=== PATIENT | male | born 1945 | race Caucasian/White ===

== ENCOUNTER 2017-05-24 03:06 | Inpatient (IN) | payer MEDICARE, BC ==
[2017-05-24] MEDS: ALBUTEROL 0.5% (NEB) 2.5 MG/0.5 ML AMP INH (04:05)
[2017-05-24] MEDS: IPRATROPIUM (NEB) 0.5 MG/2.5 ML AMP INH (04:05)
[2017-05-24 04:21] LABS: ADD MAN DIFF? NO
[2017-05-24 04:27] LABS: WHITE BLOOD COUNT 15.7 10^3/ul (4.8-10.8)
[2017-05-24 04:27] LABS: ABNORMAL IP MESSAGE 1; BASOPHILS % 0.2 % (0.0-2.0); EOSINOPHILS # 0.1 10^3/ul (0.0-0.5); EOSINOPHILS % 0.4 % (0.0-7.0); HEMATOCRIT 44.3 % (42.0-52.0); HEMOGLOBIN 14.9 g/dl (14.0-18.0); LYMPHOCYTES # 0.3 10^3/ul (0.8-2.9); LYMPHOCYTES % 1.6 % (15.0-51.0); MEAN CORPUSCULAR HEMOGLOBIN 32.7 pg (29.0-33.0); MEAN CORPUSCULAR HGB CONC 33.6 g/dl (32.0-37.0); MEAN CORPUSCULAR VOLUME 97.1 fl (82.0-101.0); MEAN PLATELET VOLUME 10.9 fl (7.4-10.4); MONOCYTE # 0.6 10^3/ul (0.3-0.9); MONOCYTES % 3.8 % (0.0-11.0); NEUTROPHIL # 14.7 10^3/ul (1.6-7.5); NEUTROPHILS % 93.6 % (39.0-77.0); PLATELET COUNT 153 10^3/UL (140-415); POSITIVE DIFF @See below; RED BLOOD COUNT 4.56 10^6/ul (4.70-6.10); RED CELL DISTRIBUTION WIDTH 13.3 % (11.5-14.5)
[2017-05-24 04:42] LABS: INR 0.94; PROTIME 12.7 Sec (11.9-14.9)
[2017-05-24 04:43] LABS: PARTIAL THROMBOPLASTIN TIME 20.7 Sec (25.0-35.0)
[2017-05-24 04:44] LABS: LACTIC ACID 1.8 mmol/L (0.5-2.0)
[2017-05-24 04:44] LABS: ALANINE AMINOTRANSFERASE 22 IU/L (13-69); ALBUMIN 3.8 g/dl (3.3-4.9); ALBUMIN/GLOBULIN RATIO 1.18; ALKALINE PHOSPHATASE 172 IU/L (42-121); ANION GAP 13 (8-16); ASPARTATE AMINO TRANSFERASE 50 IU/L (15-46); BILIRUBIN,INDIRECT 1.5 mg/dl (0-1.1); BILIRUBIN,TOTAL 1.5 mg/dl (0.2-1.3); BLOOD UREA NITROGEN 18 mg/dl (7-20); CALCIUM 8.5 mg/dl (8.4-10.2); CARBON DIOXIDE 34 mmol/L (21-31); CHLORIDE 99 mmol/L (97-110); CREATININE 0.63 mg/dl (0.61-1.24); GLUCOSE 99 mg/dl (70-220); POTASSIUM 3.7 mmol/L (3.5-5.1); SODIUM 142 mmol/L (135-144)
[2017-05-24 04:55] LABS: TROPONIN-I < 0.012 ng/ml (0.00-0.12)
[2017-05-24] MEDS ORDERED: ONDANSETRON 4 MG INJ IV (06:00)
[2017-05-24] MEDS ORDERED: ALBUTEROL/IPRATROPIUM (NEB) 3 ML AMP HHN ×2 (06:00→10:30)
[2017-05-24] MEDS ORDERED: NACL 0.9% 3 ML SYG IV (06:00)
[2017-05-24] MEDS ORDERED: morphine 2 MG INJ IV (06:00)
[2017-05-24 06:32] LABS: LACTIC ACID 1.6 mmol/L (0.5-2.0)
[2017-05-24 06:40] LABS: B-TYPE NATRIURETIC PEPTIDE 291 PG/ML (0-125)
[2017-05-24 07:03] LABS: AADO2 Arterial 23.9 mmHg (7.0-24.0); Allen Test ACCEPTAB; Arterial Base Excess 5.4 mmol/L (-3.0-3); Arterial Blood Gas Oxygen Sat 98.9 mmHG (95.0-98.0); Arterial Fraction of Oxyhgb 97.5 % (93.0-99.0); Arterial HCO3 34.8 mmol/L (22.0-26.0); Arterial MetHb 0.4 % (0.0-1.5); Arterial Total Hemglobin 15.4 g/dl (12.0-18.0); Arterial pCO2 73.2 mmhg (35-45); MODE NASAL CANNULA; Site Right Radial
[2017-05-24] MEDS: FUROSEMIDE 20 MG INJ IV (07:37)
[2017-05-24] MEDS ORDERED: ASPIRIN (EC) 81 MG TAB PO (09:00)
[2017-05-24] MEDS: LEVOFLOXACIN 500MG/D5W (PMX) 100 ML IVPB (09:07)
[2017-05-24] MEDS: ENOXAPARIN 40 MG/0.4 ML SYG SC (09:08)
[2017-05-24] MEDS: METHYLPREDNISOLONE 125 MG INJ IV ×3 (09:08→21:32)
[2017-05-24] MEDS: ENTACAPONE 200 MG TAB PO ×4 (10:46→21:32)
[2017-05-24 10:49] LABS: LACTIC ACID 0.9 mmol/L (0.5-2.0)
[2017-05-24] MEDS ORDERED: CARBIDOPA/LEVODOPA (25/100) TAB PO (13:00)
[2017-05-24] MEDS: CARBIDOPA/LEVODOPA (25/100) TAB PO ×3 (13:22→21:32)
[2017-05-24 13:42] LABS: AADO2 Arterial 365.6 mmHg (7.0-24.0); Allen Test ACCEPTAB; Arterial Base Excess 5.5 mmol/L (-3.0-3); Arterial Blood Gas Oxygen Sat 99.4 mmHG (95.0-98.0); Arterial COHb 0.6 % (0.0-3.0); Arterial Fraction of Oxyhgb 98.5 % (93.0-99.0); Arterial HCO3 36.1 mmol/L (22.0-26.0); Arterial MetHb 0.3 % (0.0-1.5); Arterial Total Hemglobin 15.3 g/dl (12.0-18.0); Arterial pCO2 83.9 mmhg (35-45); Blood Gas IEPAP 20/8; MODE MASK - BIPAP; Site Right Radial
[2017-05-24] MEDS: SOD CHLORIDE 0.9% 1,000 ML IV (14:28)
[2017-05-24] MEDS: POLYETHYLENE GLYCOL 17 GM PACKET GTB ×2 (14:30→21:33)
[2017-05-24 14:55] LABS: CREATINE KINASE 43 IU/L (23-200)
[2017-05-24 15:06] LABS: CK INDEX 2.9
[2017-05-24 15:10] LABS: TROPONIN-I 0.019 ng/ml (0.00-0.12)
[2017-05-24 15:20] LABS: CK-MB 1.26 ng/ml (0.0-2.4)
[2017-05-24 17:26] LABS: ADD UMIC YES; UR ASCORBIC ACID 40 mg/dL (NEGATIVE); UR BACTERIA MODERATE /HPF (NONE SEEN); UR BILIRUBIN (Dip) 1+ mg/dL (NEGATIVE); UR BLOOD (Dip) NEGATIVE (NEGATIVE); UR CLARITY CLOUDY (CLEAR); UR COLOR AMBER (YELLOW); UR GLUCOSE (Dip) NEGATIVE (NEGATIVE); UR KETONES (Dip) TRACE mg/dL (NEGATIVE); UR LEUKOCYTE ESTERASE (Dip) TRACE Leu/ul (NEGATIVE); UR MUCUS MANY /HPF (NONE SEEN); UR NITRITE (Dip) NEGATIVE (NEGATIVE); UR RBC 4 /HPF (0-5); UR SPECIFIC GRAVITY (Dip) 1.023 (1.003-1.030); UR TOTAL PROTEIN (Dip) 2+ mg/dl (NEGATIVE); UR UROBILINOGEN (Dip) NEGATIVE (NEGATIVE); UR WBC 3 /HPF (0-5)
[2017-05-24 18:30] LABS: AADO2 Arterial 156.9 mmHg (7.0-24.0); Allen Test ACCEPTAB; Arterial Blood Gas Oxygen Sat 98.7 mmHG (95.0-98.0); Arterial COHb 0.4 % (0.0-3.0); Arterial Fraction of Oxyhgb 98.1 % (93.0-99.0); Arterial HCO3 34.2 mmol/L (22.0-26.0); Arterial MetHb 0.2 % (0.0-1.5); Arterial Total Hemglobin 15.6 g/dl (12.0-18.0); Arterial pCO2 58.8 mmhg (35-45); Blood Gas IEPAP 20/8; MODE MASK - BIPAP; Site Left Radial
[2017-05-24] MEDS: ASPIRIN (EC) 81 MG TAB PO (21:32)
[2017-05-24] MEDS: ATORVASTATIN 10 MG TAB PO (21:33)
[2017-05-25 05:44] LABS: ADD MAN DIFF? NO
[2017-05-25] MEDS: METHYLPREDNISOLONE 125 MG INJ IV ×3 (05:52→22:00)
[2017-05-25 06:02] LABS: ABNORMAL IP MESSAGE 1; BASOPHILS % 0.1 % (0.0-2.0); HEMATOCRIT 36.9 % (42.0-52.0); HEMOGLOBIN 12.4 g/dl (14.0-18.0); LYMPHOCYTES # 0.2 10^3/ul (0.8-2.9); LYMPHOCYTES % 1.6 % (15.0-51.0); MEAN CORPUSCULAR HEMOGLOBIN 32.5 pg (29.0-33.0); MEAN CORPUSCULAR HGB CONC 33.6 g/dl (32.0-37.0); MEAN CORPUSCULAR VOLUME 96.6 fl (82.0-101.0); MONOCYTE # 0.2 10^3/ul (0.3-0.9); MONOCYTES % 1.1 % (0.0-11.0); NEUTROPHIL # 14.7 10^3/ul (1.6-7.5); NEUTROPHILS % 96.7 % (39.0-77.0); PLATELET COUNT 160 10^3/UL (140-415); POSITIVE DIFF @See below; RED BLOOD COUNT 3.82 10^6/ul (4.70-6.10); RED CELL DISTRIBUTION WIDTH 12.8 % (11.5-14.5)
[2017-05-25 06:02] LABS: WHITE BLOOD COUNT 15.2 10^3/ul (4.8-10.8)
[2017-05-25 06:46] LABS: ALANINE AMINOTRANSFERASE 31 IU/L (13-69); ALBUMIN 2.9 g/dl (3.3-4.9); ALKALINE PHOSPHATASE 113 IU/L (42-121); ANION GAP 10 (8-16); ASPARTATE AMINO TRANSFERASE 29 IU/L (15-46); BILIRUBIN,INDIRECT 0.9 mg/dl (0-1.1); BILIRUBIN,TOTAL 0.9 mg/dl (0.2-1.3); BLOOD UREA NITROGEN 27 mg/dl (7-20); CALCIUM 8.5 mg/dl (8.4-10.2); CARBON DIOXIDE 33 mmol/L (21-31); CHLORIDE 101 mmol/L (97-110); CREATININE 0.76 mg/dl (0.61-1.24); GLUCOSE 171 mg/dl (70-220); MAGNESIUM 2.4 mg/dl (1.7-2.5); PHOSPHORUS 1.5 mg/dl (2.5-4.9); POTASSIUM 4.7 mmol/L (3.5-5.1); SODIUM 139 mmol/L (135-144); TOTAL PROTEIN 5.8 g/dl (6.1-8.1)
[2017-05-25 07:56] LABS: AADO2 Arterial 237.3 mmHg (7.0-24.0); Allen Test ACCEPTAB; Arterial Base Excess 7.9 mmol/L (-3.0-3); Arterial Blood Gas Oxygen Sat 93.2 mmHG (95.0-98.0); Arterial COHb 0.1 % (0.0-3.0); Arterial Fraction of Oxyhgb 92.8 % (93.0-99.0); Arterial HCO3 34.1 mmol/L (22.0-26.0); Arterial MetHb 0.3 % (0.0-1.5); Arterial Total Hemglobin 13.8 g/dl (12.0-18.0); Arterial pCO2 53.9 mmhg (35-45); Blood Gas IEPAP 20/8; MODE MASK - BIPAP; Site Right Radial
[2017-05-25] MEDS: POLYETHYLENE GLYCOL 17 GM PACKET GTB (08:00)
[2017-05-25] MEDS: ALBUTEROL/IPRATROPIUM (NEB) 3 ML AMP HHN ×3 (08:20→20:00)
[2017-05-25] MEDS: LEVOFLOXACIN 500MG/D5W (PMX) 100 ML IVPB (08:41)
[2017-05-25] MEDS: ENTACAPONE 200 MG TAB PO ×4 (08:42→22:00)
[2017-05-25] MEDS: CARBIDOPA/LEVODOPA (25/100) TAB PO ×5 (08:43→21:59)
[2017-05-25] MEDS: ENOXAPARIN 40 MG/0.4 ML SYG SC (09:04)
[2017-05-25 09:19] LABS: CHOL/HDL RATIO 2.1 RATIO; HDL CHOLESTEROL 41 mg/dl (31-75); LDL CHOLESTEROL,CALCULATED 42 mg/dl; TRIGLYCERIDES 31 mg/dl (0-149)
[2017-05-25 09:19] LABS: CHOLESTEROL 89 mg/dl (100-200)
[2017-05-25] MEDS: SPECIAL NON-STANDARD MEDICATION TOP ×2 (11:24→16:21)
[2017-05-25] MEDS: NEUTRA-PHOS 250 MG PACKET PEG (13:00)
[2017-05-25] MEDS: ATORVASTATIN 10 MG TAB PO (21:59)
[2017-05-25] MEDS: ASPIRIN (EC) 81 MG TAB PO (22:00)
[2017-05-26 05:23] LABS: ADD MAN DIFF? NO
[2017-05-26 05:27] LABS: WHITE BLOOD COUNT 10.6 10^3/ul (4.8-10.8)
[2017-05-26 05:27] LABS: ABNORMAL IP MESSAGE 1; BASOPHILS % 0.1 % (0.0-2.0); HEMATOCRIT 37.6 % (42.0-52.0); HEMOGLOBIN 12.7 g/dl (14.0-18.0); LYMPHOCYTES # 0.2 10^3/ul (0.8-2.9); MEAN CORPUSCULAR HEMOGLOBIN 32.9 pg (29.0-33.0); MEAN CORPUSCULAR HGB CONC 33.8 g/dl (32.0-37.0); MEAN CORPUSCULAR VOLUME 97.4 fl (82.0-101.0); MEAN PLATELET VOLUME 10.8 fl (7.4-10.4); MONOCYTE # 0.2 10^3/ul (0.3-0.9); MONOCYTES % 1.8 % (0.0-11.0); NEUTROPHIL # 10.2 10^3/ul (1.6-7.5); NEUTROPHILS % 95.8 % (39.0-77.0); PLATELET COUNT 157 10^3/UL (140-415); POSITIVE DIFF @See below; RED BLOOD COUNT 3.86 10^6/ul (4.70-6.10); RED CELL DISTRIBUTION WIDTH 12.6 % (11.5-14.5)
[2017-05-26] MEDS: METHYLPREDNISOLONE 125 MG INJ IV (05:56)
[2017-05-26 06:21] LABS: IRON 18 ug/dl (35-150)
[2017-05-26 06:31] LABS: % IRON SATURATION 6 % SAT (22-52); TOTAL IRON BINDING CAPACITY 312 ug/dl (241-421)
[2017-05-26 06:35] LABS: AADO2 Arterial 193.8 mmHg (7.0-24.0); Allen Test ACCEPTAB; Arterial Base Excess 10.3 mmol/L (-3.0-3); Arterial Blood Gas Oxygen Sat 96.5 mmHG (95.0-98.0); Arterial COHb 0.3 % (0.0-3.0); Arterial HCO3 38.7 mmol/L (22.0-26.0); Arterial MetHb 0.2 % (0.0-1.5); Arterial Total Hemglobin 13.8 g/dl (12.0-18.0); Arterial pCO2 70.6 mmhg (35-45); MODE MASK - VENTI; Site Right Radial
[2017-05-26 06:40] LABS: ANION GAP 10 (8-16); BLOOD UREA NITROGEN 32 mg/dl (7-20); CALCIUM 8.6 mg/dl (8.4-10.2); CARBON DIOXIDE 35 mmol/L (21-31); CHLORIDE 100 mmol/L (97-110); CREATININE 0.66 mg/dl (0.61-1.24); GLUCOSE 203 mg/dl (70-220); MAGNESIUM 2.5 mg/dl (1.7-2.5); PHOSPHORUS 2.4 mg/dl (2.5-4.9); POTASSIUM 4.4 mmol/L (3.5-5.1); SODIUM 141 mmol/L (135-144)
[2017-05-26] MEDS: ALBUTEROL/IPRATROPIUM (NEB) 3 ML AMP HHN ×3 (07:54→18:59)
[2017-05-26] MEDS: LEVOFLOXACIN 500MG/D5W (PMX) 100 ML IVPB (08:39)
[2017-05-26] MEDS: CARBIDOPA/LEVODOPA (25/100) TAB PO ×6 (08:39→21:46)
[2017-05-26] MEDS: ENTACAPONE 200 MG TAB PO ×4 (08:40→21:46)
[2017-05-26] MEDS: ASPIRIN (EC) 81 MG TAB PO (08:41)
[2017-05-26] MEDS: ENOXAPARIN 40 MG/0.4 ML SYG SC (08:46)
[2017-05-26] MEDS: POLYETHYLENE GLYCOL 17 GM PACKET GTB (08:47)
[2017-05-26] MEDS: SPECIAL NON-STANDARD MEDICATION TOP ×2 (12:41→12:52)
[2017-05-26] MEDS: ACETAMINOPHEN 325 MG TAB PO (20:05)
[2017-05-26] MEDS: METHYLPREDNISOLONE 40 MG INJ IV (21:46)
[2017-05-26] MEDS: ATORVASTATIN 10 MG TAB PO (21:46)
[2017-05-27] MEDS: ACETAMINOPHEN 325 MG TAB PO ×3 (02:15→20:59)
[2017-05-27 04:53] LABS: ADD MAN DIFF? NO
[2017-05-27 05:03] LABS: WHITE BLOOD COUNT 7.9 10^3/ul (4.8-10.8)
[2017-05-27 05:03] LABS: ABNORMAL IP MESSAGE 1; HEMATOCRIT 37.5 % (42.0-52.0); HEMOGLOBIN 12.5 g/dl (14.0-18.0); LYMPHOCYTES # 0.1 10^3/ul (0.8-2.9); LYMPHOCYTES % 1.5 % (15.0-51.0); MEAN CORPUSCULAR HEMOGLOBIN 32.8 pg (29.0-33.0); MEAN CORPUSCULAR HGB CONC 33.3 g/dl (32.0-37.0); MEAN CORPUSCULAR VOLUME 98.4 fl (82.0-101.0); MEAN PLATELET VOLUME 10.8 fl (7.4-10.4); MONOCYTE # 0.3 10^3/ul (0.3-0.9); MONOCYTES % 3.3 % (0.0-11.0); NEUTROPHIL # 7.4 10^3/ul (1.6-7.5); NEUTROPHILS % 94.8 % (39.0-77.0); PLATELET COUNT 176 10^3/UL (140-415); POSITIVE DIFF @See below; RED BLOOD COUNT 3.81 10^6/ul (4.70-6.10); RED CELL DISTRIBUTION WIDTH 12.4 % (11.5-14.5)
[2017-05-27 05:24] LABS: ANION GAP 8 (8-16); BLOOD UREA NITROGEN 30 mg/dl (7-20); CALCIUM 8.7 mg/dl (8.4-10.2); CARBON DIOXIDE 38 mmol/L (21-31); CHLORIDE 101 mmol/L (97-110); CREATININE 0.63 mg/dl (0.61-1.24); GLUCOSE 186 mg/dl (70-220); MAGNESIUM 2.4 mg/dl (1.7-2.5); PHOSPHORUS 2.8 mg/dl (2.5-4.9); POTASSIUM 4.5 mmol/L (3.5-5.1); SODIUM 142 mmol/L (135-144)
[2017-05-27 06:46] LABS: AADO2 Arterial 100.6 mmHg (7.0-24.0); Allen Test ACCEPTAB; Arterial Base Excess 7.5 mmol/L (-3.0-3); Arterial Blood Gas Oxygen Sat 96.4 mmHG (95.0-98.0); Arterial COHb 0.1 % (0.0-3.0); Arterial Fraction of Oxyhgb 96.1 % (93.0-99.0); Arterial HCO3 35.2 mmol/L (22.0-26.0); Arterial MetHb 0.2 % (0.0-1.5); Arterial Total Hemglobin 14.6 g/dl (12.0-18.0); Arterial pCO2 62.7 mmhg (35-45); MODE NASAL CANNULA; Site Right Radial
[2017-05-27] MEDS: ALBUTEROL/IPRATROPIUM (NEB) 3 ML AMP HHN ×3 (07:52→19:39)
[2017-05-27] MEDS: CARBIDOPA/LEVODOPA (25/100) TAB PO ×6 (09:27→20:57)
[2017-05-27] MEDS: POLYETHYLENE GLYCOL 17 GM PACKET GTB (09:33)
[2017-05-27] MEDS: FERROUS SULFATE 60 MG/ML 5ML CUP GTB (09:33)
[2017-05-27] MEDS: ASCORBIC ACID 500 MG TAB NGT (09:34)
[2017-05-27] MEDS: ENTACAPONE 200 MG TAB PO ×4 (09:34→20:59)
[2017-05-27] MEDS: ASPIRIN (EC) 81 MG TAB PO (09:34)
[2017-05-27] MEDS: ENOXAPARIN 40 MG/0.4 ML SYG SC (09:39)
[2017-05-27] MEDS: METHYLPREDNISOLONE 40 MG INJ IV ×2 (09:44→20:58)
[2017-05-27] MEDS: LISINOPRIL 5 MG TAB PO (10:06)
[2017-05-27] MEDS: PIPER-TAZO 3.375 GM IV (PMX) 50 ML IVPB ×3 (12:28→23:50)
[2017-05-27] MEDS: SPECIAL NON-STANDARD MEDICATION TOP (13:28)
[2017-05-27] MEDS: ATORVASTATIN 10 MG TAB PO (20:59)
[2017-05-28] MEDS: hydrALAzine 20 MG INJ IV ×2 (04:49→21:29)
[2017-05-28 05:30] LABS: ADD MAN DIFF? NO
[2017-05-28] MEDS: PIPER-TAZO 3.375 GM IV (PMX) 50 ML IVPB ×3 (05:33→17:14)
[2017-05-28 05:46] LABS: WHITE BLOOD COUNT 5.9 10^3/ul (4.8-10.8)
[2017-05-28 05:46] LABS: ABNORMAL IP MESSAGE 1; BASOPHILS % 0.2 % (0.0-2.0); HEMATOCRIT 37.4 % (42.0-52.0); HEMOGLOBIN 12.9 g/dl (14.0-18.0); LYMPHOCYTES # 0.2 10^3/ul (0.8-2.9); LYMPHOCYTES % 3.4 % (15.0-51.0); MEAN CORPUSCULAR HEMOGLOBIN 32.5 pg (29.0-33.0); MEAN CORPUSCULAR HGB CONC 34.5 g/dl (32.0-37.0); MEAN CORPUSCULAR VOLUME 94.2 fl (82.0-101.0); MEAN PLATELET VOLUME 10.8 fl (7.4-10.4); MONOCYTE # 0.4 10^3/ul (0.3-0.9); MONOCYTES % 6.6 % (0.0-11.0); NEUTROPHIL # 5.3 10^3/ul (1.6-7.5); NEUTROPHILS % 89.3 % (39.0-77.0); PLATELET COUNT 187 10^3/UL (140-415); POSITIVE DIFF @See below; RED BLOOD COUNT 3.97 10^6/ul (4.70-6.10); RED CELL DISTRIBUTION WIDTH 12.3 % (11.5-14.5)
[2017-05-28 06:27] LABS: ANION GAP 9 (8-16); BLOOD UREA NITROGEN 27 mg/dl (7-20); CALCIUM 8.7 mg/dl (8.4-10.2); CARBON DIOXIDE 33 mmol/L (21-31); CHLORIDE 104 mmol/L (97-110); CREATININE 0.68 mg/dl (0.61-1.24); GLUCOSE 155 mg/dl (70-220); MAGNESIUM 2.3 mg/dl (1.7-2.5); PHOSPHORUS 2.2 mg/dl (2.5-4.9); POTASSIUM 4.2 mmol/L (3.5-5.1); SODIUM 142 mmol/L (135-144)
[2017-05-28] MEDS: FERROUS SULFATE 60 MG/ML 5ML CUP GTB (09:09)
[2017-05-28] MEDS: ASCORBIC ACID 500 MG TAB NGT (09:09)
[2017-05-28] MEDS: CARBIDOPA/LEVODOPA (25/100) TAB PO ×6 (09:10→20:59)
[2017-05-28] MEDS: LISINOPRIL 10 MG TAB PO (09:10)
[2017-05-28] MEDS: ENTACAPONE 200 MG TAB PO ×4 (09:11→20:59)
[2017-05-28] MEDS: ASPIRIN (EC) 81 MG TAB PO (09:11)
[2017-05-28] MEDS: METHYLPREDNISOLONE 40 MG INJ IV ×2 (09:11→20:58)
[2017-05-28] MEDS: ENOXAPARIN 40 MG/0.4 ML SYG SC (09:15)
[2017-05-28] MEDS: POLYETHYLENE GLYCOL 17 GM PACKET GTB (09:33)
[2017-05-28] MEDS: ALBUTEROL/IPRATROPIUM (NEB) 3 ML AMP HHN ×4 (10:06→20:44)
[2017-05-28 10:29] LABS: AADO2 Arterial 79.6 mmHg (7.0-24.0); Allen Test ACCEPTAB; Arterial Base Excess 8.1 mmol/L (-3.0-3); Arterial Blood Gas Oxygen Sat 98.8 mmHG (95.0-98.0); Arterial COHb 0.3 % (0.0-3.0); Arterial Fraction of Oxyhgb 98.3 % (93.0-99.0); Arterial HCO3 33.8 mmol/L (22.0-26.0); Arterial MetHb 0.2 % (0.0-1.5); Arterial Total Hemglobin 13.2 g/dl (12.0-18.0); Arterial pCO2 51.5 mmhg (35-45); Blood Gas IEPAP 20/8; MODE MASK - BIPAP; Site Left Radial
[2017-05-28] MEDS: ACETAMINOPHEN 325 MG TAB PO ×2 (11:08→20:59)
[2017-05-28] MEDS: SPECIAL NON-STANDARD MEDICATION TOP (14:00)
[2017-05-28] MEDS: ATORVASTATIN 10 MG TAB PO (20:59)
[2017-05-29] MEDS: PIPER-TAZO 3.375 GM IV (PMX) 50 ML IVPB ×4 (00:01→17:33)
[2017-05-29 05:29] LABS: ADD MAN DIFF? NO
[2017-05-29 05:37] LABS: ABNORMAL IP MESSAGE 1; BASOPHILS % 0.2 % (0.0-2.0); HEMATOCRIT 37.4 % (42.0-52.0); LYMPHOCYTES # 0.2 10^3/ul (0.8-2.9); LYMPHOCYTES % 3.4 % (15.0-51.0); MEAN CORPUSCULAR HEMOGLOBIN 32.7 pg (29.0-33.0); MEAN CORPUSCULAR HGB CONC 34.8 g/dl (32.0-37.0); MEAN CORPUSCULAR VOLUME 94.2 fl (82.0-101.0); MEAN PLATELET VOLUME 10.4 fl (7.4-10.4); MONOCYTE # 0.3 10^3/ul (0.3-0.9); MONOCYTES % 4.7 % (0.0-11.0); NEUTROPHIL # 5.8 10^3/ul (1.6-7.5); NEUTROPHILS % 90.5 % (39.0-77.0); PLATELET COUNT 171 10^3/UL (140-415); POSITIVE DIFF @See below; RED BLOOD COUNT 3.97 10^6/ul (4.70-6.10); RED CELL DISTRIBUTION WIDTH 12.3 % (11.5-14.5)
[2017-05-29 05:37] LABS: WHITE BLOOD COUNT 6.4 10^3/ul (4.8-10.8)
[2017-05-29 06:37] LABS: ANION GAP 9 (8-16); BLOOD UREA NITROGEN 29 mg/dl (7-20); CALCIUM 8.8 mg/dl (8.4-10.2); CARBON DIOXIDE 31 mmol/L (21-31); CHLORIDE 105 mmol/L (97-110); CREATININE 0.63 mg/dl (0.61-1.24); GLUCOSE 151 mg/dl (70-220); MAGNESIUM 2.2 mg/dl (1.7-2.5); PHOSPHORUS 2.6 mg/dl (2.5-4.9); POTASSIUM 3.9 mmol/L (3.5-5.1); SODIUM 141 mmol/L (135-144)
[2017-05-29] MEDS: ALBUTEROL/IPRATROPIUM (NEB) 3 ML AMP HHN ×3 (07:54→19:02)
[2017-05-29] MEDS: FERROUS SULFATE 60 MG/ML 5ML CUP GTB (08:37)
[2017-05-29] MEDS: ENTACAPONE 200 MG TAB PO ×4 (08:38→21:05)
[2017-05-29] MEDS: ASCORBIC ACID 500 MG TAB NGT (08:38)
[2017-05-29] MEDS: ASPIRIN (EC) 81 MG TAB PO (08:38)
[2017-05-29] MEDS: CARBIDOPA/LEVODOPA (25/100) TAB PO ×6 (08:38→21:05)
[2017-05-29] MEDS: POLYETHYLENE GLYCOL 17 GM PACKET GTB (08:39)
[2017-05-29] MEDS: METHYLPREDNISOLONE 40 MG INJ IV ×2 (08:39→21:05)
[2017-05-29] MEDS: LISINOPRIL 10 MG TAB PO (08:40)
[2017-05-29] MEDS: ENOXAPARIN 40 MG/0.4 ML SYG SC (08:44)
[2017-05-29] MEDS: ACETAMINOPHEN 325 MG TAB PO ×2 (09:46→21:05)
[2017-05-29] MEDS: SPECIAL NON-STANDARD MEDICATION TOP (13:20)
[2017-05-29] MEDS: hydrALAzine 20 MG INJ IV (21:05)
[2017-05-29] MEDS: ATORVASTATIN 10 MG TAB PO (21:05)
[2017-05-30] MEDS: PIPER-TAZO 3.375 GM IV (PMX) 50 ML IVPB ×4 (00:04→17:10)
[2017-05-30 05:04] LABS: ADD MAN DIFF? NO
[2017-05-30 05:15] LABS: ABNORMAL IP MESSAGE 1; BASOPHILS % 0.1 % (0.0-2.0); HEMATOCRIT 39.1 % (42.0-52.0); HEMOGLOBIN 13.2 g/dl (14.0-18.0); LYMPHOCYTES # 0.2 10^3/ul (0.8-2.9); LYMPHOCYTES % 2.5 % (15.0-51.0); MEAN CORPUSCULAR HGB CONC 33.8 g/dl (32.0-37.0); MEAN CORPUSCULAR VOLUME 94.9 fl (82.0-101.0); MEAN PLATELET VOLUME 10.4 fl (7.4-10.4); MONOCYTE # 0.4 10^3/ul (0.3-0.9); MONOCYTES % 5.3 % (0.0-11.0); NEUTROPHIL # 7.3 10^3/ul (1.6-7.5); NEUTROPHILS % 90.1 % (39.0-77.0); PLATELET COUNT 183 10^3/UL (140-415); POSITIVE DIFF @See below; RED BLOOD COUNT 4.12 10^6/ul (4.70-6.10); RED CELL DISTRIBUTION WIDTH 12.4 % (11.5-14.5)
[2017-05-30 05:15] LABS: WHITE BLOOD COUNT 8.1 10^3/ul (4.8-10.8)
[2017-05-30 05:55] LABS: ANION GAP 8 (8-16); BLOOD UREA NITROGEN 32 mg/dl (7-20); CARBON DIOXIDE 34 mmol/L (21-31); CHLORIDE 105 mmol/L (97-110); CREATININE 0.68 mg/dl (0.61-1.24); GLUCOSE 150 mg/dl (70-220); MAGNESIUM 2.2 mg/dl (1.7-2.5); PHOSPHORUS 3.3 mg/dl (2.5-4.9); POTASSIUM 4.2 mmol/L (3.5-5.1); SODIUM 143 mmol/L (135-144)
[2017-05-30] MEDS: ALBUTEROL/IPRATROPIUM (NEB) 3 ML AMP HHN ×3 (07:29→19:40)
[2017-05-30] MEDS: FERROUS SULFATE 60 MG/ML 5ML CUP GTB (09:04)
[2017-05-30] MEDS: POLYETHYLENE GLYCOL 17 GM PACKET GTB (09:04)
[2017-05-30] MEDS: METHYLPREDNISOLONE 40 MG INJ IV (09:04)
[2017-05-30] MEDS: ASCORBIC ACID 500 MG TAB NGT (09:04)
[2017-05-30] MEDS: ASPIRIN (EC) 81 MG TAB PO (09:05)
[2017-05-30] MEDS: ENTACAPONE 200 MG TAB PO ×4 (09:05→21:27)
[2017-05-30] MEDS: CARBIDOPA/LEVODOPA (25/100) TAB PO ×6 (09:05→21:27)
[2017-05-30] MEDS: LISINOPRIL 10 MG TAB PO (09:06)
[2017-05-30] MEDS: SPECIAL NON-STANDARD MEDICATION TOP (09:08)
[2017-05-30] MEDS: ENOXAPARIN 40 MG/0.4 ML SYG SC (09:11)
[2017-05-30] MEDS: ACETAMINOPHEN 325 MG TAB PO ×2 (09:21→17:56)
[2017-05-30 10:54] LABS: Allen Test ACCEPTAB; Arterial Base Excess 8.4 mmol/L (-3.0-3); Arterial Blood Gas Oxygen Sat 95.9 mmHG (95.0-98.0); Arterial COHb 0.3 % (0.0-3.0); Arterial Fraction of Oxyhgb 95.4 % (93.0-99.0); Arterial HCO3 36.8 mmol/L (22.0-26.0); Arterial MetHb 0.2 % (0.0-1.5); Arterial Total Hemglobin 14.3 g/dl (12.0-18.0); Arterial pCO2 68.3 mmhg (35-45); MODE MASK - VENTI; Site Right Radial
[2017-05-30] MEDS: ATORVASTATIN 10 MG TAB PO (21:27)
[2017-05-30] MEDS: FAMOTIDINE 20 MG TAB GTB (21:27)
[2017-05-31] MEDS: ACETAMINOPHEN 325 MG TAB PO ×3 (00:32→21:03)
[2017-05-31] MEDS: hydrALAzine 20 MG INJ IV (00:32)
[2017-05-31] MEDS: PIPER-TAZO 3.375 GM IV (PMX) 50 ML IVPB ×4 (00:32→18:08)
[2017-05-31 05:54] LABS: ADD MAN DIFF? NO
[2017-05-31 06:07] LABS: WHITE BLOOD COUNT 8.1 10^3/ul (4.8-10.8)
[2017-05-31 06:07] LABS: ABNORMAL IP MESSAGE 1; BASOPHILS % 0.2 % (0.0-2.0); EOSINOPHILS % 0.4 % (0.0-7.0); HEMATOCRIT 37.5 % (42.0-52.0); LYMPHOCYTES # 0.4 10^3/ul (0.8-2.9); LYMPHOCYTES % 5.2 % (15.0-51.0); MEAN CORPUSCULAR HEMOGLOBIN 33.1 pg (29.0-33.0); MEAN CORPUSCULAR HGB CONC 34.7 g/dl (32.0-37.0); MEAN CORPUSCULAR VOLUME 95.4 fl (82.0-101.0); MEAN PLATELET VOLUME 10.3 fl (7.4-10.4); MONOCYTE # 0.6 10^3/ul (0.3-0.9); MONOCYTES % 7.7 % (0.0-11.0); NEUTROPHIL # 6.8 10^3/ul (1.6-7.5); NEUTROPHILS % 83.9 % (39.0-77.0); PLATELET COUNT 148 10^3/UL (140-415); POSITIVE DIFF @See below; RED BLOOD COUNT 3.93 10^6/ul (4.70-6.10); RED CELL DISTRIBUTION WIDTH 12.4 % (11.5-14.5)
[2017-05-31 07:00] LABS: ANION GAP 9 (8-16); BLOOD UREA NITROGEN 33 mg/dl (7-20); CALCIUM 8.5 mg/dl (8.4-10.2); CARBON DIOXIDE 32 mmol/L (21-31); CHLORIDE 105 mmol/L (97-110); GLUCOSE 127 mg/dl (70-220); MAGNESIUM 2.1 mg/dl (1.7-2.5); PHOSPHORUS 3.2 mg/dl (2.5-4.9); POTASSIUM 3.6 mmol/L (3.5-5.1); SODIUM 142 mmol/L (135-144)
[2017-05-31] MEDS: ALBUTEROL/IPRATROPIUM (NEB) 3 ML AMP HHN ×3 (07:44→19:44)
[2017-05-31] MEDS: FERROUS SULFATE 60 MG/ML 5ML CUP GTB (08:43)
[2017-05-31] MEDS: ASCORBIC ACID 500 MG TAB NGT (08:43)
[2017-05-31] MEDS: ENTACAPONE 200 MG TAB PO ×4 (08:44→21:04)
[2017-05-31] MEDS: ASPIRIN (EC) 81 MG TAB PO (08:44)
[2017-05-31] MEDS: LISINOPRIL 10 MG TAB PO (08:44)
[2017-05-31] MEDS: CARBIDOPA/LEVODOPA (25/100) TAB PO ×6 (08:45→21:04)
[2017-05-31] MEDS: METHYLPREDNISOLONE 40 MG INJ IV (08:46)
[2017-05-31] MEDS: POLYETHYLENE GLYCOL 17 GM PACKET GTB (08:46)
[2017-05-31] MEDS: SPECIAL NON-STANDARD MEDICATION TOP (09:00)
[2017-05-31] MEDS: ENOXAPARIN 40 MG/0.4 ML SYG SC (09:13)
[2017-05-31] MEDS: FAMOTIDINE 20 MG TAB GTB (21:04)
[2017-05-31] MEDS: ATORVASTATIN 10 MG TAB PO (21:04)
[2017-06-01] MEDS: PIPER-TAZO 3.375 GM IV (PMX) 50 ML IVPB ×3 (00:47→12:36)
[2017-06-01] MEDS: ACETAMINOPHEN 325 MG TAB PO ×3 (06:29→15:56)
[2017-06-01] MEDS: ALBUTEROL/IPRATROPIUM (NEB) 3 ML AMP HHN ×2 (08:23→14:31)
[2017-06-01 08:38] LABS: ADD MAN DIFF? NO
[2017-06-01 08:51] LABS: WHITE BLOOD COUNT 7.2 10^3/ul (4.8-10.8)
[2017-06-01 08:51] LABS: BASOPHILS % 0.4 % (0.0-2.0); EOSINOPHILS # 0.1 10^3/ul (0.0-0.5); EOSINOPHILS % 1.4 % (0.0-7.0); HEMATOCRIT 39.1 % (42.0-52.0); HEMOGLOBIN 13.2 g/dl (14.0-18.0); LYMPHOCYTES # 0.8 10^3/ul (0.8-2.9); LYMPHOCYTES % 10.8 % (15.0-51.0); MEAN CORPUSCULAR HEMOGLOBIN 32.3 pg (29.0-33.0); MEAN CORPUSCULAR HGB CONC 33.8 g/dl (32.0-37.0); MEAN CORPUSCULAR VOLUME 95.6 fl (82.0-101.0); MEAN PLATELET VOLUME 10.2 fl (7.4-10.4); MONOCYTE # 0.6 10^3/ul (0.3-0.9); MONOCYTES % 8.6 % (0.0-11.0); NEUTROPHIL # 5.5 10^3/ul (1.6-7.5); NEUTROPHILS % 75.2 % (39.0-77.0); PLATELET COUNT 149 10^3/UL (140-415); RED BLOOD COUNT 4.09 10^6/ul (4.70-6.10); RED CELL DISTRIBUTION WIDTH 12.3 % (11.5-14.5)
[2017-06-01 09:23] LABS: ANION GAP 8 (8-16); BLOOD UREA NITROGEN 30 mg/dl (7-20); CALCIUM 8.5 mg/dl (8.4-10.2); CARBON DIOXIDE 34 mmol/L (21-31); CHLORIDE 102 mmol/L (97-110); CREATININE 0.66 mg/dl (0.61-1.24); GLUCOSE 120 mg/dl (70-220); POTASSIUM 3.4 mmol/L (3.5-5.1); SODIUM 141 mmol/L (135-144)
[2017-06-01] MEDS: CARBIDOPA/LEVODOPA (25/100) TAB PO ×3 (09:43→15:56)
[2017-06-01] MEDS: FERROUS SULFATE 60 MG/ML 5ML CUP GTB (09:44)
[2017-06-01] MEDS: SPECIAL NON-STANDARD MEDICATION TOP (09:44)
[2017-06-01] MEDS: ASPIRIN (EC) 81 MG TAB PO (09:44)
[2017-06-01] MEDS: POLYETHYLENE GLYCOL 17 GM PACKET GTB (09:44)
[2017-06-01] MEDS: ENTACAPONE 200 MG TAB PO ×2 (09:44→15:56)
[2017-06-01] MEDS: ASCORBIC ACID 500 MG TAB NGT (09:44)
[2017-06-01] MEDS: ENOXAPARIN 40 MG/0.4 ML SYG SC (09:50)
[2017-06-01] MEDS: LISINOPRIL 10 MG TAB PO (09:52)
[2017-06-01 11:32] LABS: AADO2 Arterial 27.3 mmHg (7.0-24.0); Allen Test ACCEPTAB; Arterial Base Excess 4.9 mmol/L (-3.0-3); Arterial Blood Gas Oxygen Sat 92.8 mmHG (95.0-98.0); Arterial COHb 0.1 % (0.0-3.0); Arterial Fraction of Oxyhgb 92.5 % (93.0-99.0); Arterial HCO3 30.4 mmol/L (22.0-26.0); Arterial MetHb 0.2 % (0.0-1.5); Arterial Total Hemglobin 14.4 g/dl (12.0-18.0); Arterial pCO2 48.3 mmhg (35-45); MODE ROOM AIR; Site Right Radial
[2017-06-01] MEDS: POTASSIUM CHLORIDE (SR) 20 MEQ TAB PO (12:36)
== END 2017-06-01 16:34 | disposition home health service (06) | DRG 871 ==
LOC: E/R 03:06 → MS4 05-31 22:20 → ICU 05:41
PROC: 5A09557 Assistance with Respiratory Ventilation, Greater than 96 Consecutive Hours, Continuous Positive Airway Pressure (ICD-10-PCS; principal; 2017-05-25)
PROC: 3E0F73Z Introduction of Anti-inflammatory into Respiratory Tract, Via Natural or Artificial Opening (ICD-10-PCS; 2017-05-25)
DX: A41.9 Sepsis, unspecified organism (principal); G82.50 Quadriplegia, unspecified; G93.40 Encephalopathy, unspecified; J96.01 Acute respiratory failure with hypoxia; J96.02 Acute respiratory failure with hypercapnia; R13.10 Dysphagia, unspecified; J18.9 Pneumonia, unspecified organism; J44.0 Chronic obstructive pulmonary disease with (acute) lower respiratory infection; N39.0 Urinary tract infection, site not specified; J44.9 Chronic obstructive pulmonary disease, unspecified; G20 Parkinson's disease; J20.8 Acute bronchitis due to other specified organisms; B96.20 Unspecified Escherichia coli [E. coli] as the cause of diseases classified elsewhere; B95.2 Enterococcus as the cause of diseases classified elsewhere; B96.89 Other specified bacterial agents as the cause of diseases classified elsewhere; Z66 Do not resuscitate; R33.9 Retention of urine, unspecified; Z93.59 Other cystostomy status; Z51.5 Encounter for palliative care; F02.80 Dementia in other diseases classified elsewhere, unspecified severity, without behavioral disturbance, psychotic disturbance, mood disturbance, and anxiety; G31.83 Neurocognitive disorder with Lewy bodies; Z93.1 Gastrostomy status; J20.9 Acute bronchitis, unspecified
CPT/HCPCS: 36415; 36600; 71010; 76700; 80048; 80053; 80061; 81001; 82550; 82553; 82728; 82803; 83540; 83605; 83735; 83880; 84100; 84484; 85025; 85610; 85730; 87040; 87081; 87086; 93005; 93306; 93970; 94640; 94644; 94660; 96372; 96374; 96375; 99285-25; J1940

== ENCOUNTER 2018-08-16 14:56 | Inpatient (IN) | payer MEDICARE, BC ==
[2018-08-16 15:57] LABS: ADD MAN DIFF? NO
[2018-08-16 16:03] LABS: WHITE BLOOD COUNT 8.3 10^3/ul (4.8-10.8)
[2018-08-16 16:03] LABS: BASOPHILS % 0.5 % (0.0-2.0); EOSINOPHILS # 0.2 10^3/ul (0.0-0.5); EOSINOPHILS % 2.2 % (0.0-7.0); HEMATOCRIT 43.2 % (42.0-52.0); HEMOGLOBIN 14.2 g/dl (14.0-18.0); LYMPHOCYTES # 0.7 10^3/ul (0.8-2.9); LYMPHOCYTES % 8.4 % (15.0-51.0); MEAN CORPUSCULAR HEMOGLOBIN 31.7 pg (29.0-33.0); MEAN CORPUSCULAR HGB CONC 32.9 g/dl (32.0-37.0); MEAN CORPUSCULAR VOLUME 96.4 fl (82.0-101.0); MEAN PLATELET VOLUME 11.4 fl (7.4-10.4); MONOCYTE # 0.5 10^3/ul (0.3-0.9); MONOCYTES % 6.3 % (0.0-11.0); NEUTROPHIL # 6.8 10^3/ul (1.6-7.5); NEUTROPHILS % 82.2 % (39.0-77.0); POSITIVE DIFF @See below; RED BLOOD COUNT 4.48 10^6/ul (4.70-6.10); RED CELL DISTRIBUTION WIDTH 13.5 % (11.5-14.5)
[2018-08-16 16:05] LABS: PLATELET COUNT 255 10^3/UL (140-415)
[2018-08-16] MEDS: IPRATROPIUM (NEB) 0.5 MG/2.5 ML AMP HHN (16:12)
[2018-08-16] MEDS: ALBUTEROL 0.083% (NEB) 2.5 MG/3 ML AMP HHN (16:12)
[2018-08-16 16:20] LABS: ALANINE AMINOTRANSFERASE 13 IU/L (13-69); ALBUMIN/GLOBULIN RATIO 1.21; ALKALINE PHOSPHATASE 183 IU/L (42-121); ANION GAP 6 (5-13); ASPARTATE AMINO TRANSFERASE 42 IU/L (15-46); BILIRUBIN,INDIRECT 0.5 mg/dl (0-1.1); BILIRUBIN,TOTAL 0.5 mg/dl (0.2-1.3); BLOOD UREA NITROGEN 19 mg/dl (7-20); CALCIUM 9.6 mg/dl (8.4-10.2); CARBON DIOXIDE 36 mmol/L (21-31); CHLORIDE 99 mmol/L (97-110); CREATININE 0.56 mg/dl (0.61-1.24); GLUCOSE 110 mg/dl (70-220); POTASSIUM 4.1 mmol/L (3.5-5.1); SODIUM 141 mmol/L (135-144); TOTAL PROTEIN 7.3 g/dl (6.1-8.1)
[2018-08-16 16:23] LABS: INR 0.95; PROTIME 12.8 Sec (11.9-14.9)
[2018-08-16 16:24] LABS: PARTIAL THROMBOPLASTIN TIME 34.3 Sec (23.0-35.0)
[2018-08-16 16:31] LABS: TROPONIN-I < 0.012 ng/ml (0.000-0.120)
[2018-08-16 16:33] LABS: ADD UMIC YES; UR ASCORBIC ACID 40 mg/dL (NEGATIVE); UR BACTERIA FEW /HPF (NONE SEEN); UR BILIRUBIN (Dip) NEGATIVE (NEGATIVE); UR BLOOD (Dip) NEGATIVE (NEGATIVE); UR CLARITY SLIGHTLY CLOUDY (CLEAR); UR COLOR AMBER (YELLOW); UR GLUCOSE (Dip) NEGATIVE (NEGATIVE); UR HYALINE CAST FEW /HPF (NONE SEEN); UR KETONES (Dip) TRACE mg/dL (NEGATIVE); UR LEUKOCYTE ESTERASE (Dip) 1+ Leu/ul (NEGATIVE); UR MUCUS MANY /HPF (NONE SEEN); UR NITRITE (Dip) NEGATIVE (NEGATIVE); UR RBC 69 /HPF (0-5); UR SPECIFIC GRAVITY (Dip) 1.032 (1.003-1.030); UR TOTAL PROTEIN (Dip) 2+ mg/dl (NEGATIVE); UR UROBILINOGEN (Dip) NEGATIVE (NEGATIVE); UR WBC 69 /HPF (0-5)
[2018-08-16] MEDS ORDERED: ONDANSETRON 4 MG INJ IV (17:30)
[2018-08-16] MEDS ORDERED: ACETAMINOPHEN 325 MG TAB PO (17:30)
[2018-08-16] MEDS ORDERED: NACL 0.9% 3 ML SYG IV (18:00)
[2018-08-16] MEDS: SOD CHLORIDE 0.9% 100 ML (18:03)
[2018-08-16] MEDS: IOHEXOL 100 ML (18:03)
[2018-08-16] MEDS ORDERED: IBUPROFEN 200 MG TAB GTB (18:30)
[2018-08-16] MEDS ORDERED: POLYETHYLENE GLYCOL 17 GM PACKET GTB (18:30)
[2018-08-16] MEDS ORDERED: ALBUTEROL 0.083% (NEB) 2.5 MG/3 ML AMP NEB (18:30)
[2018-08-16] MEDS ORDERED: LEVODOPA GTB ×2 (21:00)
[2018-08-16] MEDS ORDERED: [UNRECOGNIZED DRUG - OTHER] GTB (21:00)
[2018-08-16] MEDS ORDERED: CARBIDOPA GTB ×2 (21:00)
[2018-08-16] MEDS: GLYCOPYRROLATE 1 MG TAB GTB (21:00)
[2018-08-16 21:30] LABS: LACTIC ACID 1.7 mmol/L (0.5-2.0)
[2018-08-16 21:46] LABS: AADO2 Arterial 83.5 mmHg (7.0-24.0); Allen Test ACCEPTAB; Arterial Base Excess 3.4 mmol/L (-3.0-3); Arterial Blood Gas Oxygen Sat 91.3 mmHG (95.0-100.0); Arterial COHb 0.4 % (0.0-3.0); Arterial Fraction of Oxyhgb 90.8 % (93.0-99.0); Arterial MetHb 0.2 % (0.0-1.5); Arterial pCO2 48.3 mmhg (35-45); MODE NASAL CANNULA; Site Left Radial
[2018-08-16] MEDS: METHYLPREDNISOLONE 40 MG INJ IV (23:44)
[2018-08-16] MEDS: ENTACAPONE 200 MG TAB GTB (23:47)
[2018-08-16] MEDS: CARBIDOPA/LEVODOPA (25/100) TAB GTB (23:47)
[2018-08-16] MEDS: BACLOFEN 10 MG TAB GTB (23:47)
[2018-08-17] MEDS: PIPER-TAZO 3.375 GM IV (PMX) 100 ML IVPB ×4 (00:21→21:55)
[2018-08-17] MEDS: IBUPROFEN 800 MG TAB GTB (00:22)
[2018-08-17] MEDS: METHYLPREDNISOLONE 40 MG INJ IV ×3 (05:18→21:53)
[2018-08-17 05:58] LABS: ADD MAN DIFF? NO
[2018-08-17 06:03] LABS: WHITE BLOOD COUNT 15.6 10^3/ul (4.8-10.8)
[2018-08-17 06:03] LABS: ABNORMAL IP MESSAGE 1; BASOPHIL # 0.1 10^3/ul (0.0-0.1); BASOPHILS % 0.4 % (0.0-2.0); HEMATOCRIT 38.7 % (42.0-52.0); HEMOGLOBIN 12.7 g/dl (14.0-18.0); LYMPHOCYTES # 0.2 10^3/ul (0.8-2.9); LYMPHOCYTES % 1.3 % (15.0-51.0); MEAN CORPUSCULAR HEMOGLOBIN 31.6 pg (29.0-33.0); MEAN CORPUSCULAR HGB CONC 32.8 g/dl (32.0-37.0); MEAN CORPUSCULAR VOLUME 96.3 fl (82.0-101.0); MEAN PLATELET VOLUME 10.4 fl (7.4-10.4); MONOCYTE # 0.2 10^3/ul (0.3-0.9); MONOCYTES % 1.2 % (0.0-11.0); NEUTROPHILS % 96.5 % (39.0-77.0); PLATELET COUNT 203 10^3/UL (140-415); POSITIVE DIFF @See below; RED BLOOD COUNT 4.02 10^6/ul (4.70-6.10); RED CELL DISTRIBUTION WIDTH 13.2 % (11.5-14.5)
[2018-08-17 06:26] LABS: ALANINE AMINOTRANSFERASE 24 IU/L (13-69); ALBUMIN 3.4 g/dl (3.3-4.9); ALBUMIN/GLOBULIN RATIO 1.21; ALKALINE PHOSPHATASE 141 IU/L (42-121); ANION GAP 5 (5-13); ASPARTATE AMINO TRANSFERASE 30 IU/L (15-46); BILIRUBIN,INDIRECT 0.8 mg/dl (0-1.1); BILIRUBIN,TOTAL 0.8 mg/dl (0.2-1.3); BLOOD UREA NITROGEN 19 mg/dl (7-20); CALCIUM 9.2 mg/dl (8.4-10.2); CARBON DIOXIDE 33 mmol/L (21-31); CHLORIDE 99 mmol/L (97-110); CREATININE 0.57 mg/dl (0.61-1.24); GLUCOSE 132 mg/dl (70-220); POTASSIUM 4.7 mmol/L (3.5-5.1); SODIUM 137 mmol/L (135-144); TOTAL PROTEIN 6.2 g/dl (6.1-8.1)
[2018-08-17 07:04] LABS: HEMOGLOBIN A1C 4.3 % (0-5.9)
[2018-08-17] MEDS ORDERED: PENDING SANTYL ORDER FOR WOUND CARE XX (08:00)
[2018-08-17] MEDS: ROTIGOTINE TRANSDERM (09:00)
[2018-08-17] MEDS: BACLOFEN 10 MG TAB GTB ×4 (09:00→22:07)
[2018-08-17] MEDS: GLYCOPYRROLATE 1 MG TAB GTB ×2 (09:00→22:06)
[2018-08-17 09:48] LABS: AADO2 Arterial 33.7 mmHg (7.0-24.0); Allen Test ACCEPTAB; Arterial Base Excess 5.7 mmol/L (-3.0-3); Arterial Blood Gas Oxygen Sat 86.6 mmHG (95.0-100.0); Arterial COHb 0.2 % (0.0-3.0); Arterial Fraction of Oxyhgb 86.2 % (93.0-99.0); Arterial HCO3 32.3 mmol/L (22.0-26.0); Arterial MetHb 0.3 % (0.0-1.5); Arterial pCO2 55.5 mmhg (35-45); MODE ROOM AIR; Site Right Radial
[2018-08-17] MEDS: ENTACAPONE 200 MG TAB GTB ×4 (09:54→21:55)
[2018-08-17] MEDS: CARBIDOPA/LEVODOPA (25/100) TAB GTB ×4 (09:54→21:54)
[2018-08-17] MEDS: ENOXAPARIN 40 MG/0.4 ML SYG SC (10:14)
[2018-08-17] MEDS: MIDODRINE 5 MG TAB PO (13:09)
[2018-08-18] MEDS: IBUPROFEN 800 MG TAB GTB ×3 (00:45→22:43)
[2018-08-18] MEDS: PIPER-TAZO 3.375 GM IV (PMX) 100 ML IVPB ×3 (06:54→21:18)
[2018-08-18] MEDS: METHYLPREDNISOLONE 40 MG INJ IV ×3 (06:54→21:18)
[2018-08-18] MEDS: ENTACAPONE 200 MG TAB GTB ×4 (09:00→21:16)
[2018-08-18] MEDS: ROTIGOTINE TRANSDERM (09:00)
[2018-08-18] MEDS: CARBIDOPA/LEVODOPA (25/100) TAB GTB ×4 (10:15→21:16)
[2018-08-18] MEDS: GLYCOPYRROLATE 1 MG TAB GTB ×2 (10:15→21:16)
[2018-08-18] MEDS: BACLOFEN 10 MG TAB GTB ×4 (10:16→22:42)
[2018-08-18] MEDS: ENOXAPARIN 40 MG/0.4 ML SYG SC (10:25)
[2018-08-19] MEDS: METHYLPREDNISOLONE 40 MG INJ IV ×3 (05:56→21:10)
[2018-08-19] MEDS: PIPER-TAZO 3.375 GM IV (PMX) 100 ML IVPB ×3 (05:56→21:11)
[2018-08-19] MEDS: GLYCOPYRROLATE 1 MG TAB GTB ×2 (08:28→21:09)
[2018-08-19] MEDS: ENTACAPONE 200 MG TAB GTB ×4 (08:29→21:08)
[2018-08-19] MEDS: ENOXAPARIN 40 MG/0.4 ML SYG SC (08:39)
[2018-08-19] MEDS: BACLOFEN 10 MG TAB GTB ×3 (08:41→21:09)
[2018-08-19] MEDS: ROTIGOTINE TRANSDERM (08:41)
[2018-08-19] MEDS: LISINOPRIL 10 MG TAB GTB (09:45)
[2018-08-19] MEDS: CARBIDOPA/LEVODOPA (25/100) TAB GTB ×4 (09:45→21:09)
[2018-08-19] MEDS: ACETAMINOPHEN 650MG/20.3ML CUP GTB (10:35)
[2018-08-19 10:40] LABS: ADD MAN DIFF? NO
[2018-08-19 10:42] LABS: ABNORMAL IP MESSAGE 1; BASOPHILS % 0.1 % (0.0-2.0); HEMATOCRIT 37.6 % (42.0-52.0); HEMOGLOBIN 12.3 g/dl (14.0-18.0); LYMPHOCYTES # 0.3 10^3/ul (0.8-2.9); LYMPHOCYTES % 2.6 % (15.0-51.0); MEAN CORPUSCULAR HEMOGLOBIN 31.3 pg (29.0-33.0); MEAN CORPUSCULAR HGB CONC 32.7 g/dl (32.0-37.0); MEAN CORPUSCULAR VOLUME 95.7 fl (82.0-101.0); MEAN PLATELET VOLUME 10.4 fl (7.4-10.4); MONOCYTE # 0.3 10^3/ul (0.3-0.9); MONOCYTES % 2.8 % (0.0-11.0); NEUTROPHIL # 8.9 10^3/ul (1.6-7.5); NEUTROPHILS % 93.9 % (39.0-77.0); PLATELET COUNT 253 10^3/UL (140-415); POSITIVE DIFF @See below; RED BLOOD COUNT 3.93 10^6/ul (4.70-6.10); RED CELL DISTRIBUTION WIDTH 12.9 % (11.5-14.5)
[2018-08-19 10:42] LABS: WHITE BLOOD COUNT 9.4 10^3/ul (4.8-10.8)
[2018-08-19 11:02] LABS: ANION GAP 4 (5-13); BLOOD UREA NITROGEN 23 mg/dl (7-20); CALCIUM 9.3 mg/dl (8.4-10.2); CARBON DIOXIDE 35 mmol/L (21-31); CHLORIDE 103 mmol/L (97-110); CREATININE 0.63 mg/dl (0.61-1.24); GLUCOSE 153 mg/dl (70-220); MAGNESIUM 2.6 mg/dl (1.7-2.5); PHOSPHORUS 2.6 mg/dl (2.5-4.9); POTASSIUM 4.5 mmol/L (3.5-5.1); SODIUM 142 mmol/L (135-144)
[2018-08-19] MEDS: IBUPROFEN 800 MG TAB GTB (18:13)
[2018-08-19] MEDS: IBUPROFEN 400 MG TAB GTB (23:33)
[2018-08-20] MEDS: METHYLPREDNISOLONE 40 MG INJ IV (05:32)
[2018-08-20] MEDS: PIPER-TAZO 3.375 GM IV (PMX) 100 ML IVPB ×3 (05:34→21:58)
[2018-08-20] MEDS: ROTIGOTINE TRANSDERM (09:00)
[2018-08-20] MEDS: ENOXAPARIN 40 MG/0.4 ML SYG SC (09:50)
[2018-08-20] MEDS: ACETAMINOPHEN 325 MG TAB PO (10:11)
[2018-08-20] MEDS: ENTACAPONE 200 MG TAB GTB ×4 (10:11→21:57)
[2018-08-20] MEDS: GLYCOPYRROLATE 1 MG TAB GTB ×2 (10:11→21:58)
[2018-08-20] MEDS: LISINOPRIL 10 MG TAB GTB (10:12)
[2018-08-20] MEDS: BACLOFEN 10 MG TAB GTB ×2 (10:18→17:50)
[2018-08-20] MEDS: CARBIDOPA/LEVODOPA (25/100) TAB GTB ×4 (10:20→21:57)
[2018-08-20 13:13] LABS: AADO2 Arterial 238.3 mmHg (7.0-24.0); Allen Test ACCEPTAB; Arterial Blood Gas Oxygen Sat 99.4 mmHG (95.0-100.0); Arterial COHb 0.3 % (0.0-3.0); Arterial Fraction of Oxyhgb 98.7 % (93.0-99.0); Arterial HCO3 33.6 mmol/L (22.0-26.0); Arterial MetHb 0.4 % (0.0-1.5); Arterial pCO2 62.3 mmhg (35-45); Blood Gas IEPAP 15/5; Blood Gas PS 10; MODE MASK - BIPAP; Site Right Radial
[2018-08-21] MEDS: PIPER-TAZO 3.375 GM IV (PMX) 100 ML IVPB ×3 (05:43→21:29)
[2018-08-21 07:31] LABS: AADO2 Arterial 526.3 mmHg (7.0-24.0); Allen Test ACCEPTAB; Arterial Blood Gas Oxygen Sat 98.2 mmHG (95.0-100.0); Arterial COHb 0.3 % (0.0-3.0); Arterial Fraction of Oxyhgb 97.7 % (93.0-99.0); Arterial HCO3 40.6 mmol/L (22.0-26.0); Arterial MetHb 0.2 % (0.0-1.5); Arterial pCO2 73.1 mmhg (35-45); MODE HFNC; Site Right Radial
[2018-08-21] MEDS: BACLOFEN 10 MG TAB GTB ×2 (09:14→18:14)
[2018-08-21] MEDS: GLYCOPYRROLATE 1 MG TAB GTB ×2 (09:14→21:29)
[2018-08-21] MEDS: IBUPROFEN 800 MG TAB GTB (09:14)
[2018-08-21] MEDS: CARBIDOPA/LEVODOPA (25/100) TAB GTB ×4 (09:15→21:29)
[2018-08-21] MEDS: ENTACAPONE 200 MG TAB GTB ×4 (09:15→21:29)
[2018-08-21] MEDS: LISINOPRIL 10 MG TAB GTB (09:16)
[2018-08-21] MEDS: ROTIGOTINE TRANSDERM (09:16)
[2018-08-21] MEDS: ENOXAPARIN 40 MG/0.4 ML SYG SC (10:08)
[2018-08-21] MEDS ORDERED: traMADol 50 MG TAB GTB (23:18)
[2018-08-21] MEDS: SOD CHLORIDE 0.9% 500 ML IV (23:23)
[2018-08-21] MEDS: ACETAMINOPHEN 325 MG TAB PO (23:49)
[2018-08-22] MEDS: ALBUMIN HUMAN 25% 100 ML IV (01:20)
[2018-08-22 02:26] LABS: TROPONIN-I < 0.012 ng/ml (0.000-0.120)
[2018-08-22 05:28] LABS: ADD MAN DIFF? NO
[2018-08-22 05:39] LABS: WHITE BLOOD COUNT 7.8 10^3/ul (4.8-10.8)
[2018-08-22 05:39] LABS: BASOPHILS % 0.3 % (0.0-2.0); EOSINOPHILS # 0.1 10^3/ul (0.0-0.5); EOSINOPHILS % 1.7 % (0.0-7.0); HEMATOCRIT 34.9 % (42.0-52.0); LYMPHOCYTES # 0.9 10^3/ul (0.8-2.9); LYMPHOCYTES % 11.7 % (15.0-51.0); MEAN CORPUSCULAR HEMOGLOBIN 31.3 pg (29.0-33.0); MEAN CORPUSCULAR HGB CONC 31.5 g/dl (32.0-37.0); MEAN CORPUSCULAR VOLUME 99.1 fl (82.0-101.0); MONOCYTE # 0.5 10^3/ul (0.3-0.9); NEUTROPHIL # 6.2 10^3/ul (1.6-7.5); NEUTROPHILS % 79.1 % (39.0-77.0); PLATELET COUNT 171 10^3/UL (140-415); RED BLOOD COUNT 3.52 10^6/ul (4.70-6.10); RED CELL DISTRIBUTION WIDTH 12.7 % (11.5-14.5)
[2018-08-22 06:14] LABS: BLOOD UREA NITROGEN 21 mg/dl (7-20); CALCIUM 8.8 mg/dl (8.4-10.2); CHLORIDE 99 mmol/L (97-110); CREATININE 0.71 mg/dl (0.61-1.24); GLUCOSE 108 mg/dl (70-220); MAGNESIUM 2.5 mg/dl (1.7-2.5); PHOSPHORUS 2.9 mg/dl (2.5-4.9); POTASSIUM 4.3 mmol/L (3.5-5.1); SODIUM 145 mmol/L (135-144)
[2018-08-22 06:25] LABS: ANION GAP 5 (5-13)
[2018-08-22 06:32] LABS: CARBON DIOXIDE 41 mmol/L (21-31)
[2018-08-22] MEDS: PIPER-TAZO 3.375 GM IV (PMX) 100 ML IVPB ×3 (06:34→23:36)
[2018-08-22] MEDS: ENTACAPONE 200 MG TAB GTB ×4 (09:36→21:22)
[2018-08-22] MEDS: CARBIDOPA/LEVODOPA (25/100) TAB GTB ×4 (09:36→21:26)
[2018-08-22] MEDS: BACLOFEN 10 MG TAB GTB ×3 (09:36→17:03)
[2018-08-22] MEDS: GLYCOPYRROLATE 1 MG TAB GTB ×2 (09:36→21:22)
[2018-08-22] MEDS: ROTIGOTINE TRANSDERM (09:36)
[2018-08-22] MEDS: ENOXAPARIN 40 MG/0.4 ML SYG SC (09:57)
[2018-08-22 10:17] LABS: AADO2 Arterial 198.4 mmHg (7.0-24.0); Allen Test ACCEPTAB; Arterial Base Excess 11.5 mmol/L (-3.0-3); Arterial Blood Gas Oxygen Sat 94.6 mmHG (95.0-100.0); Arterial COHb 0.3 % (0.0-3.0); Arterial Fraction of Oxyhgb 93.9 % (93.0-99.0); Arterial HCO3 39.4 mmol/L (22.0-26.0); Arterial MetHb 0.4 % (0.0-1.5); Arterial pCO2 72.9 mmhg (35-45); Blood Gas IEPAP 15/5; Blood Gas PS 10; MODE MASK - BIPAP; Site Right Radial
[2018-08-22] MEDS ORDERED: MULTIVITAMINS/VIT C 0.5ML (PO SYG) PO (11:30)
[2018-08-22] MEDS: MULTIVITAMINS THERAPEUTIC TAB PO (11:30)
[2018-08-22] MEDS: BALSAM PERU/CASTOR OIL 60 GM TUBE TOP (21:21)
[2018-08-23] MEDS: PIPER-TAZO 3.375 GM IV (PMX) 100 ML IVPB ×3 (05:37→21:09)
[2018-08-23 07:47] LABS: ADD MAN DIFF? NO
[2018-08-23 08:02] LABS: WHITE BLOOD COUNT 8.1 10^3/ul (4.8-10.8)
[2018-08-23 08:02] LABS: BASOPHILS % 0.4 % (0.0-2.0); EOSINOPHILS # 0.2 10^3/ul (0.0-0.5); EOSINOPHILS % 2.9 % (0.0-7.0); HEMATOCRIT 42.6 % (42.0-52.0); HEMOGLOBIN 13.4 g/dl (14.0-18.0); LYMPHOCYTES # 0.9 10^3/ul (0.8-2.9); LYMPHOCYTES % 10.5 % (15.0-51.0); MEAN CORPUSCULAR HEMOGLOBIN 30.8 pg (29.0-33.0); MEAN CORPUSCULAR HGB CONC 31.5 g/dl (32.0-37.0); MEAN CORPUSCULAR VOLUME 97.9 fl (82.0-101.0); MONOCYTE # 0.5 10^3/ul (0.3-0.9); NEUTROPHIL # 6.4 10^3/ul (1.6-7.5); NEUTROPHILS % 79.1 % (39.0-77.0); PLATELET COUNT 174 10^3/UL (140-415); RED BLOOD COUNT 4.35 10^6/ul (4.70-6.10); RED CELL DISTRIBUTION WIDTH 12.6 % (11.5-14.5)
[2018-08-23 08:25] LABS: ANION GAP 7 (5-13); BLOOD UREA NITROGEN 19 mg/dl (7-20); CALCIUM 9.3 mg/dl (8.4-10.2); CARBON DIOXIDE 39 mmol/L (21-31); CHLORIDE 99 mmol/L (97-110); CREATININE 0.52 mg/dl (0.61-1.24); GLUCOSE 97 mg/dl (70-220); POTASSIUM 4.6 mmol/L (3.5-5.1); SODIUM 145 mmol/L (135-144)
[2018-08-23] MEDS: ENTACAPONE 200 MG TAB GTB ×4 (08:42→21:09)
[2018-08-23] MEDS: MULTIVITAMINS THERAPEUTIC TAB PO (08:42)
[2018-08-23] MEDS: GLYCOPYRROLATE 1 MG TAB GTB ×2 (08:42→21:09)
[2018-08-23] MEDS: BALSAM PERU/CASTOR OIL 60 GM TUBE TOP ×2 (08:43→21:10)
[2018-08-23] MEDS: ENOXAPARIN 40 MG/0.4 ML SYG SC (08:48)
[2018-08-23] MEDS: ROTIGOTINE TRANSDERM (09:00)
[2018-08-23] MEDS: CARBIDOPA/LEVODOPA (25/100) TAB GTB ×4 (09:54→21:22)
[2018-08-23] MEDS: ACETAMINOPHEN 325 MG TAB PO ×3 (10:23→18:38)
[2018-08-23] MEDS ORDERED: hydrALAzine 20 MG INJ IV (13:00)
[2018-08-23] MEDS: ALBUTEROL 0.083% (NEB) 2.5 MG/3 ML AMP NEB (20:06)
[2018-08-24] MEDS: ALBUTEROL 0.083% (NEB) 2.5 MG/3 ML AMP NEB ×2 (01:42→20:06)
[2018-08-24 05:11] LABS: ADD MAN DIFF? NO
[2018-08-24 05:15] LABS: BASOPHILS % 0.3 % (0.0-2.0); EOSINOPHILS # 0.2 10^3/ul (0.0-0.5); EOSINOPHILS % 3.4 % (0.0-7.0); HEMATOCRIT 35.8 % (42.0-52.0); HEMOGLOBIN 11.5 g/dl (14.0-18.0); LYMPHOCYTES # 0.7 10^3/ul (0.8-2.9); LYMPHOCYTES % 11.9 % (15.0-51.0); MEAN CORPUSCULAR HEMOGLOBIN 31.4 pg (29.0-33.0); MEAN CORPUSCULAR HGB CONC 32.1 g/dl (32.0-37.0); MEAN CORPUSCULAR VOLUME 97.8 fl (82.0-101.0); MEAN PLATELET VOLUME 10.1 fl (7.4-10.4); MONOCYTE # 0.4 10^3/ul (0.3-0.9); MONOCYTES % 6.4 % (0.0-11.0); NEUTROPHIL # 4.5 10^3/ul (1.6-7.5); PLATELET COUNT 189 10^3/UL (140-415); RED BLOOD COUNT 3.66 10^6/ul (4.70-6.10); RED CELL DISTRIBUTION WIDTH 12.4 % (11.5-14.5)
[2018-08-24 05:15] LABS: WHITE BLOOD COUNT 5.8 10^3/ul (4.8-10.8)
[2018-08-24] MEDS: PIPER-TAZO 3.375 GM IV (PMX) 100 ML IVPB (05:16)
[2018-08-24 06:01] LABS: BLOOD UREA NITROGEN 19 mg/dl (7-20); CHLORIDE 97 mmol/L (97-110); GLUCOSE 101 mg/dl (70-220); MAGNESIUM 2.4 mg/dl (1.7-2.5); PHOSPHORUS 3.4 mg/dl (2.5-4.9); POTASSIUM 4.1 mmol/L (3.5-5.1); SODIUM 144 mmol/L (135-144)
[2018-08-24 06:19] LABS: ANION GAP 5 (5-13); CARBON DIOXIDE 42 mmol/L (21-31)
[2018-08-24 07:46] LABS: AADO2 Arterial 39.2 mmHg (7.0-24.0); Allen Test ACCEPTAB; Arterial Base Excess 15.2 mmol/L (-3.0-3); Arterial Blood Gas Oxygen Sat 96.5 mmHG (95.0-100.0); Arterial COHb 0.6 % (0.0-3.0); Arterial Fraction of Oxyhgb 95.6 % (93.0-99.0); Arterial HCO3 43.8 mmol/L (22.0-26.0); Arterial MetHb 0.3 % (0.0-1.5); Arterial pCO2 76.2 mmhg (35-45); MODE HFNC; Site Right Radial
[2018-08-24] MEDS: GLYCOPYRROLATE 1 MG TAB GTB ×2 (08:28→21:00)
[2018-08-24] MEDS: MULTIVITAMINS THERAPEUTIC TAB PO (08:28)
[2018-08-24] MEDS: ROTIGOTINE TRANSDERM (08:28)
[2018-08-24] MEDS: BALSAM PERU/CASTOR OIL 60 GM TUBE TOP ×2 (08:28→21:00)
[2018-08-24] MEDS: ENTACAPONE 200 MG TAB GTB ×4 (08:28→21:00)
[2018-08-24] MEDS: ENOXAPARIN 40 MG/0.4 ML SYG SC (08:32)
[2018-08-24] MEDS: CARBIDOPA/LEVODOPA (25/100) TAB GTB ×4 (09:54→21:00)
[2018-08-24] MEDS: ACETAMINOPHEN 325 MG TAB PO (11:17)
[2018-08-25] MEDS: ALBUTEROL 0.083% (NEB) 2.5 MG/3 ML AMP NEB (02:13)
[2018-08-25 08:27] LABS: ADD MAN DIFF? NO
[2018-08-25 08:28] LABS: WHITE BLOOD COUNT 5.7 10^3/ul (4.8-10.8)
[2018-08-25 08:28] LABS: BASOPHILS % 0.2 % (0.0-2.0); EOSINOPHILS # 0.2 10^3/ul (0.0-0.5); HEMOGLOBIN 11.7 g/dl (14.0-18.0); LYMPHOCYTES # 0.8 10^3/ul (0.8-2.9); LYMPHOCYTES % 14.2 % (15.0-51.0); MEAN CORPUSCULAR HEMOGLOBIN 31.2 pg (29.0-33.0); MEAN CORPUSCULAR HGB CONC 31.6 g/dl (32.0-37.0); MEAN CORPUSCULAR VOLUME 98.7 fl (82.0-101.0); MEAN PLATELET VOLUME 9.9 fl (7.4-10.4); MONOCYTE # 0.4 10^3/ul (0.3-0.9); MONOCYTES % 7.6 % (0.0-11.0); NEUTROPHIL # 4.2 10^3/ul (1.6-7.5); NEUTROPHILS % 73.9 % (39.0-77.0); PLATELET COUNT 217 10^3/UL (140-415); RED BLOOD COUNT 3.75 10^6/ul (4.70-6.10); RED CELL DISTRIBUTION WIDTH 12.6 % (11.5-14.5)
[2018-08-25 08:46] LABS: BLOOD UREA NITROGEN 18 mg/dl (7-20); CALCIUM 9.3 mg/dl (8.4-10.2); CHLORIDE 98 mmol/L (97-110); CREATININE 0.56 mg/dl (0.61-1.24); GLUCOSE 103 mg/dl (70-220); MAGNESIUM 2.5 mg/dl (1.7-2.5); POTASSIUM 4.3 mmol/L (3.5-5.1); SODIUM 143 mmol/L (135-144)
[2018-08-25 09:02] LABS: ANION GAP 4 (5-13); CARBON DIOXIDE 41 mmol/L (21-31)
[2018-08-25] MEDS: BALSAM PERU/CASTOR OIL 60 GM TUBE TOP ×2 (09:03→20:52)
[2018-08-25] MEDS: GLYCOPYRROLATE 1 MG TAB GTB ×2 (09:03→20:53)
[2018-08-25] MEDS: ENTACAPONE 200 MG TAB GTB ×4 (09:03→20:53)
[2018-08-25] MEDS: CARBIDOPA/LEVODOPA (25/100) TAB GTB ×4 (09:03→21:00)
[2018-08-25] MEDS: ROTIGOTINE TRANSDERM (09:03)
[2018-08-25] MEDS: MULTIVITAMINS THERAPEUTIC TAB PO (09:03)
[2018-08-25] MEDS: ENOXAPARIN 40 MG/0.4 ML SYG SC (09:10)
[2018-08-25] MEDS: ACETAMINOPHEN 325 MG TAB PO (11:09)
[2018-08-25 13:36] LABS: MODE HFNC; MetHgb Venous 0.3 %; Sample Type Blood venous; Site VENOUS LINE; Venous COHb 0.4 %; Venous Fraction OxyHgb 75.1 %; Venous Oxygen Sat 75.6 mmHG (55.0-75.0); Venous Total Hemglobin 11.8 g/dl
[2018-08-26 03:19] LABS: ADD MAN DIFF? NO
[2018-08-26 03:20] LABS: WHITE BLOOD COUNT 4.1 10^3/ul (4.8-10.8)
[2018-08-26 03:20] LABS: ABNORMAL IP MESSAGE 1; BASOPHILS % 0.7 % (0.0-2.0); EOSINOPHILS # 0.1 10^3/ul (0.0-0.5); EOSINOPHILS % 2.7 % (0.0-7.0); HEMATOCRIT 35.9 % (42.0-52.0); HEMOGLOBIN 11.3 g/dl (14.0-18.0); LYMPHOCYTES # 0.6 10^3/ul (0.8-2.9); LYMPHOCYTES % 14.1 % (15.0-51.0); MEAN CORPUSCULAR HEMOGLOBIN 31.4 pg (29.0-33.0); MEAN CORPUSCULAR HGB CONC 31.5 g/dl (32.0-37.0); MEAN CORPUSCULAR VOLUME 99.7 fl (82.0-101.0); MEAN PLATELET VOLUME 9.9 fl (7.4-10.4); MONOCYTE # 0.3 10^3/ul (0.3-0.9); MONOCYTES % 8.3 % (0.0-11.0); NEUTROPHILS % 73.2 % (39.0-77.0); PLATELET COUNT 187 10^3/UL (140-415); POSITIVE DIFF @See below; RED CELL DISTRIBUTION WIDTH 12.5 % (11.5-14.5)
[2018-08-26 04:11] LABS: BLOOD UREA NITROGEN 24 mg/dl (7-20); CALCIUM 8.9 mg/dl (8.4-10.2); CHLORIDE 97 mmol/L (97-110); CREATININE 0.64 mg/dl (0.61-1.24); GLUCOSE 109 mg/dl (70-220); POTASSIUM 4.2 mmol/L (3.5-5.1); SODIUM 142 mmol/L (135-144)
[2018-08-26 04:33] LABS: ANION GAP 4 (5-13)
[2018-08-26 04:34] LABS: CARBON DIOXIDE 41 mmol/L (21-31)
[2018-08-26 05:12] LABS: AADO2 Arterial 36.1 mmHg (7.0-24.0); Allen Test ACCEPTAB; Arterial Base Excess 12.7 mmol/L (-3.0-3); Arterial Blood Gas Oxygen Sat 96.5 mmHG (95.0-100.0); Arterial COHb 0.9 % (0.0-3.0); Arterial Fraction of Oxyhgb 95.3 % (93.0-99.0); Arterial HCO3 41.8 mmol/L (22.0-26.0); Arterial MetHb 0.3 % (0.0-1.5); Blood Gas IEPAP 15/5; Blood Gas PS 10; MODE MASK - BIPAP; Site Right Radial
[2018-08-26] MEDS: SOD CHLORIDE 0.9% 1,000 ML IV ×2 (06:40→09:00)
[2018-08-26] MEDS: ATROPINE 0.4 MG INJ IV (07:30)
[2018-08-26 07:44] LABS: LACTIC ACID 0.8 mmol/L (0.5-2.0)
[2018-08-26 07:50] LABS: TROPONIN-I < 0.012 ng/ml (0.000-0.120)
[2018-08-26] MEDS: GLYCOPYRROLATE 1 MG TAB GTB ×2 (09:48→21:01)
[2018-08-26] MEDS: CARBIDOPA/LEVODOPA (25/100) TAB GTB ×4 (09:48→21:01)
[2018-08-26] MEDS: ENTACAPONE 200 MG TAB GTB ×4 (09:48→21:01)
[2018-08-26] MEDS: MULTIVITAMINS THERAPEUTIC TAB PO (09:48)
[2018-08-26] MEDS: BALSAM PERU/CASTOR OIL 60 GM TUBE TOP ×2 (09:49→21:01)
[2018-08-26] MEDS: ROTIGOTINE TRANSDERM (09:50)
[2018-08-26] MEDS: ENOXAPARIN 40 MG/0.4 ML SYG SC (09:52)
[2018-08-26] MEDS: PIPER-TAZO 3.375 GM IV (PMX) 100 ML IVPB ×2 (12:04→17:36)
[2018-08-26] MEDS: LACTATED RINGER'S 500 ML IV (12:04)
[2018-08-26] MEDS: MIDODRINE 5 MG TAB PEG ×2 (13:40→21:02)
[2018-08-26] MEDS: ACETAMINOPHEN 325 MG TAB PO ×2 (16:23→21:00)
[2018-08-27] MEDS: PIPER-TAZO 3.375 GM IV (PMX) 100 ML IVPB ×3 (01:52→17:28)
[2018-08-27 05:18] LABS: ADD MAN DIFF? NO
[2018-08-27] MEDS: MIDODRINE 5 MG TAB PEG ×3 (05:21→21:15)
[2018-08-27 05:25] LABS: AADO2 Arterial 166.4 mmHg (7.0-24.0); Allen Test ACCEPTAB; Arterial Base Excess 12.6 mmol/L (-3.0-3); Arterial Blood Gas Oxygen Sat 94.3 mmHG (95.0-100.0); Arterial COHb 0.6 % (0.0-3.0); Arterial Fraction of Oxyhgb 93.5 % (93.0-99.0); Arterial HCO3 42.2 mmol/L (22.0-26.0); Arterial MetHb 0.3 % (0.0-1.5); Arterial pCO2 73.5 mmhg (35-45); MODE HFNC; Site Right Radial
[2018-08-27 05:36] LABS: BASOPHILS % 0.6 % (0.0-2.0); EOSINOPHILS # 0.2 10^3/ul (0.0-0.5); EOSINOPHILS % 3.3 % (0.0-7.0); HEMATOCRIT 33.9 % (42.0-52.0); HEMOGLOBIN 10.8 g/dl (14.0-18.0); LYMPHOCYTES # 0.7 10^3/ul (0.8-2.9); LYMPHOCYTES % 13.9 % (15.0-51.0); MEAN CORPUSCULAR HEMOGLOBIN 30.9 pg (29.0-33.0); MEAN CORPUSCULAR HGB CONC 31.9 g/dl (32.0-37.0); MEAN CORPUSCULAR VOLUME 96.9 fl (82.0-101.0); MEAN PLATELET VOLUME 10.3 fl (7.4-10.4); MONOCYTE # 0.3 10^3/ul (0.3-0.9); MONOCYTES % 6.2 % (0.0-11.0); NEUTROPHIL # 3.6 10^3/ul (1.6-7.5); NEUTROPHILS % 75.4 % (39.0-77.0); PLATELET COUNT 212 10^3/UL (140-415); RED CELL DISTRIBUTION WIDTH 12.4 % (11.5-14.5)
[2018-08-27 05:36] LABS: WHITE BLOOD COUNT 4.8 10^3/ul (4.8-10.8)
[2018-08-27 05:47] LABS: LACTIC ACID 0.7 mmol/L (0.5-2.0)
[2018-08-27 05:55] LABS: BLOOD UREA NITROGEN 24 mg/dl (7-20); CALCIUM 8.7 mg/dl (8.4-10.2); CHLORIDE 102 mmol/L (97-110); CREATININE 0.62 mg/dl (0.61-1.24); GLUCOSE 100 mg/dl (70-220); POTASSIUM 3.9 mmol/L (3.5-5.1); SODIUM 144 mmol/L (135-144)
[2018-08-27 06:02] LABS: ANION GAP 3 (5-13)
[2018-08-27 06:04] LABS: CARBON DIOXIDE 39 mmol/L (21-31)
[2018-08-27] MEDS ORDERED: hydrALAzine 20 MG INJ IV (06:30)
[2018-08-27] MEDS: GLYCOPYRROLATE 1 MG TAB GTB ×2 (08:35→21:15)
[2018-08-27] MEDS: ENTACAPONE 200 MG TAB GTB ×4 (08:35→21:15)
[2018-08-27] MEDS: MULTIVITAMINS THERAPEUTIC TAB PO (08:36)
[2018-08-27] MEDS: BALSAM PERU/CASTOR OIL 60 GM TUBE TOP ×2 (08:36→21:18)
[2018-08-27] MEDS: ROTIGOTINE TRANSDERM (08:36)
[2018-08-27] MEDS: ENOXAPARIN 40 MG/0.4 ML SYG SC (08:37)
[2018-08-27] MEDS: CARBIDOPA/LEVODOPA (25/100) TAB GTB ×4 (08:59→21:15)
[2018-08-27] MEDS: ACETAMINOPHEN 325 MG TAB PO (13:45)
[2018-08-27] MEDS: ALBUTEROL 0.083% (NEB) 2.5 MG/3 ML AMP NEB (20:15)
[2018-08-28] MEDS: ALBUTEROL 0.083% (NEB) 2.5 MG/3 ML AMP NEB (01:24)
[2018-08-28] MEDS: PIPER-TAZO 3.375 GM IV (PMX) 100 ML IVPB ×3 (01:48→17:41)
[2018-08-28 05:43] LABS: ADD MAN DIFF? NO
[2018-08-28 05:49] LABS: BASOPHILS % 0.9 % (0.0-2.0); EOSINOPHILS # 0.1 10^3/ul (0.0-0.5); EOSINOPHILS % 2.8 % (0.0-7.0); HEMATOCRIT 34.5 % (42.0-52.0); HEMOGLOBIN 10.7 g/dl (14.0-18.0); LYMPHOCYTES # 0.9 10^3/ul (0.8-2.9); MEAN CORPUSCULAR HEMOGLOBIN 30.8 pg (29.0-33.0); MEAN CORPUSCULAR VOLUME 99.4 fl (82.0-101.0); MEAN PLATELET VOLUME 10.5 fl (7.4-10.4); MONOCYTE # 0.4 10^3/ul (0.3-0.9); NEUTROPHIL # 3.1 10^3/ul (1.6-7.5); NEUTROPHILS % 67.6 % (39.0-77.0); PLATELET COUNT 198 10^3/UL (140-415); RED BLOOD COUNT 3.47 10^6/ul (4.70-6.10); RED CELL DISTRIBUTION WIDTH 12.5 % (11.5-14.5)
[2018-08-28 05:49] LABS: WHITE BLOOD COUNT 4.6 10^3/ul (4.8-10.8)
[2018-08-28] MEDS: MIDODRINE 5 MG TAB PEG ×3 (06:07→21:47)
[2018-08-28 06:40] LABS: BLOOD UREA NITROGEN 22 mg/dl (7-20); CALCIUM 8.7 mg/dl (8.4-10.2); CHLORIDE 102 mmol/L (97-110); CREATININE 0.55 mg/dl (0.61-1.24); GLUCOSE 93 mg/dl (70-220); MAGNESIUM 2.5 mg/dl (1.7-2.5); PHOSPHORUS 2.5 mg/dl (2.5-4.9); POTASSIUM 4.2 mmol/L (3.5-5.1); SODIUM 143 mmol/L (135-144)
[2018-08-28 06:47] LABS: ANION GAP 4 (5-13)
[2018-08-28 06:48] LABS: CARBON DIOXIDE 37 mmol/L (21-31)
[2018-08-28 07:37] LABS: AADO2 Arterial 31.3 mmHg (7.0-24.0); Allen Test ACCEPTAB; Arterial Base Excess 14.1 mmol/L (-3.0-3); Arterial Blood Gas Oxygen Sat 96.3 mmHG (95.0-100.0); Arterial COHb 0.1 % (0.0-3.0); Arterial Fraction of Oxyhgb 95.9 % (93.0-99.0); Arterial HCO3 43.2 mmol/L (22.0-26.0); Arterial MetHb 0.3 % (0.0-1.5); MODE HFNC; Site Right Radial
[2018-08-28] MEDS: GLYCOPYRROLATE 1 MG TAB GTB ×2 (08:28→21:44)
[2018-08-28] MEDS: ENTACAPONE 200 MG TAB GTB ×4 (08:28→21:44)
[2018-08-28] MEDS: MULTIVITAMINS THERAPEUTIC TAB PO (08:29)
[2018-08-28] MEDS: BALSAM PERU/CASTOR OIL 60 GM TUBE TOP ×2 (08:37→21:45)
[2018-08-28] MEDS: ENOXAPARIN 40 MG/0.4 ML SYG SC (08:43)
[2018-08-28] MEDS: CARBIDOPA/LEVODOPA (25/100) TAB GTB ×4 (09:28→21:45)
[2018-08-28] MEDS: ROTIGOTINE TRANSDERM (09:36)
[2018-08-28] MEDS: HYDROCORTISONE 1% 28 GM CR TOP (21:45)
[2018-08-28] MEDS: ACETAMINOPHEN 325 MG TAB PO (21:46)
[2018-08-29] MEDS: PIPER-TAZO 3.375 GM IV (PMX) 100 ML IVPB ×3 (02:53→18:22)
[2018-08-29] MEDS: MIDODRINE 5 MG TAB PEG ×2 (06:28→13:11)
[2018-08-29] MEDS: ROTIGOTINE TRANSDERM (09:00)
[2018-08-29] MEDS: GLYCOPYRROLATE 1 MG TAB GTB (09:34)
[2018-08-29] MEDS: CARBIDOPA/LEVODOPA (25/100) TAB GTB ×3 (09:34→17:50)
[2018-08-29] MEDS: BALSAM PERU/CASTOR OIL 60 GM TUBE TOP (09:35)
[2018-08-29] MEDS: MULTIVITAMINS THERAPEUTIC TAB PO (09:35)
[2018-08-29] MEDS: HYDROCORTISONE 1% 28 GM CR TOP (09:35)
[2018-08-29] MEDS: ENTACAPONE 200 MG TAB GTB ×3 (09:35→17:49)
[2018-08-29] MEDS: ENOXAPARIN 40 MG/0.4 ML SYG SC (09:42)
[2018-08-29] MEDS: ACETAMINOPHEN 325 MG TAB PO (10:34)
[2018-08-29] MEDS: LIDOCAINE 1% (MPF) 5 ML VIAL SC (11:10)
== END 2018-08-29 18:50 | disposition home health service (06) | DRG 189 ==
LOC: ICU 08-22 12:45 → E/R 14:56 → 6WM 08-28 11:55
PROVIDERS: Internal Medicine
PROC: 4A133R1 Monitoring of Arterial Saturation, Peripheral, Percutaneous Approach (ICD-10-PCS; 2018-08-16)
PROC: 5A09557 Assistance with Respiratory Ventilation, Greater than 96 Consecutive Hours, Continuous Positive Airway Pressure (ICD-10-PCS; principal; 2018-08-17)
PROC: 02HV33Z Insertion of Infusion Device into Superior Vena Cava, Percutaneous Approach (ICD-10-PCS; 2018-08-29)
DX: J96.22 Acute and chronic respiratory failure with hypercapnia (principal); J69.0 Pneumonitis due to inhalation of food and vomit; A41.9 Sepsis, unspecified organism; T17.590A Other foreign object in bronchus causing asphyxiation, initial encounter; J96.21 Acute and chronic respiratory failure with hypoxia; G20 Parkinson's disease; F02.80 Dementia in other diseases classified elsewhere, unspecified severity, without behavioral disturbance, psychotic disturbance, mood disturbance, and anxiety; I10 Essential (primary) hypertension; J44.9 Chronic obstructive pulmonary disease, unspecified; I95.9 Hypotension, unspecified; R00.1 Bradycardia, unspecified; M62.59 Muscle wasting and atrophy, not elsewhere classified, multiple sites; R13.10 Dysphagia, unspecified; X58.XXXA Exposure to other specified factors, initial encounter; Z66 Do not resuscitate; Z87.891 Personal history of nicotine dependence; Z93.1 Gastrostomy status; Z79.82 Long term (current) use of aspirin; Z79.899 Other long term (current) drug therapy
CPT/HCPCS: 36415; 36569; 36600; 71045; 71275; 76604; 76937; 80048; 80053; 81001; 82533; 82803; 82962; 83036; 83605; 83735; 84100; 84443; 84484; 85025; 85610; 85730; 87040; 87081; 87086; 93005; 94640; 94660; 94664; 94667; 94668; 94669; 99285-25